=== PATIENT | female | born 1955 | race Caucasian/White ===

== ENCOUNTER → 2019-03-28 | Outpatient (CLI) | payer BC ==
--- NOTE | 2019-03-28 16:25 | Diagnostic Imaging Report ---
INDICATION: Right-sided shoulder pain TECHNIQUE: Three views of the right shoulder CORRELATION STUDY: None FINDINGS: The glenohumeral and acromioclavicular alignment are maintained and unremarkable. There is no evidence for acute fracture or dislocation. Mild hypertrophic spurring about the acromioclavicular joint. The visualized soft tissues are unremarkable. IMPRESSION: 1. Negative for acute bony abnormality about the shoulder. Dictated by: Dictated on workstation # [id number]
== END ==
LOC: RAD FS 15:46
PROVIDERS: ATTEND Nurse Practitioner
DX: M25.511 Pain in right shoulder (principal)
CPT/HCPCS: 73030

== ENCOUNTER → 2019-04-11 | Outpatient (CLI) | payer BC ==
--- NOTE | 2019-04-11 13:40 | Diagnostic Imaging Report ---
INDICATION: One month history of bronchitis, weakness.. TECHNIQUE: Two view chest 12:53 PM CORRELATION STUDY: None FINDINGS: Mild rightward curvature thoracic spine. Heart size, mediastinum and vasculature are within normal limits. The lungs are clear with no consolidating infiltrate. There is no significant pleural effusion or pneumothorax. Calcified granuloma left lower lobe just above the diaphragm. IMPRESSION: 1. No radiographic evidence for acute abnormality of the chest. Dictated by: Dictated on workstation # [id number]
== END ==
LOC: RAD FS 12:39
PROVIDERS: ATTEND Nurse Practitioner Family
DX: R53.1 Weakness (principal); Z87.09 Personal history of other diseases of the respiratory system
CPT/HCPCS: 71046

== ENCOUNTER 2021-02-02 15:18 | Emergency (ER) | payer BC ==
[2021-02-02] MEDS ORDERED: hydrALAZINE (APESOLINE) 20 MG/ML VIAL IV STA (15:33)
[2021-02-02] MEDS ORDERED: ASPIRIN 81 MG CHEW (CHILDREN'S ASA) PO STA (15:33)
[2021-02-02 15:35] LABS: BASOPHILS # (AUTO) 0.1 10^3/uL (0.0-0.1); BASOPHILS % (AUTO) 1 % (0-10); EOSINOPHILS # (AUTO) 0.2 10^3/uL (0.0-0.3); EOSINOPHILS % (AUTO) 3 % (0-10); HEMATOCRIT 39 % (35-52); HEMOGLOBIN 13.6 G/DL (11.5-16.0); LYMPHOCYTES # (AUTO) 1.4 X 10^3 (1.0-4.0); LYMPHOCYTES % (AUTO) 20 % (12-44); MEAN CORPUSCULAR HEMOGLOBIN 32 PG (25-34); MEAN CORPUSCULAR HGB CONC 35 G/DL (32-36); MEAN CORPUSCULAR VOLUME 92 FL (80-99); MEAN PLATELET VOLUME 9.3 FL (7.4-10.4); MONOCYTES % (AUTO) 13 % (0-12); NEUTROPHILS # (AUTO) 4.5 X 10^3 (1.8-7.8); NEUTROPHILS % (AUTO) 63 % (42-75); PLATELET COUNT 319 10^3/uL (130-400); WHITE BLOOD COUNT 7.3 10^3/uL (4.3-11.0)
--- NOTE | 2021-02-02 15:38 | ED Chest Pain ---
General Chief Complaint: Chest Pain Stated Complaint: HIGH BLOOD PRESSURE | CHEST PAINS Nursing Triage Note: Started having chest pain 2 hours ago. Is currently pain free. Pain was in central chest and occured while at rest. Took BP at home and was elevated at 190's systolic. 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 She took her blood pressure and it was 190-200 systolic over 110s. She took a dose of her blood pressure medicine at home about 45 minutes prior to arriving in the ED. she was not actively doing anything specifically when the symptoms started. She states that she was just looking to have a puppy. She was feeling some dizziness along with the chest pressure, nausea, heartburn symptoms. On arrival to the ED she is feeling better but symptoms are not completely resolved just yet. She denies having problems like this in the past. She does have chronic high blood pressure and takes medication for it. She has history of GERD as well but again has not had symptoms just like this. She does have a family history of high blood pressure and cardiac disease. Timing/Duration: 1-3 hours, changing over time (Improving and almost gone on arrival to the ED) Severity/Quality: severe (Initially severe 7-8 out of 10 but almost resolved on arrival to ED), ingestion, pressure Location: substernal, central Radiation: no radiation Activities at Onset: none Prior CP/Workup: no prior cardiac workup Modifying Factors: improves with rest, improves with other (Taking her blood pressure medication) ASA po MANAGER COMMUNITY OUTREACH: No NTG SL MANAGER COMMUNITY OUTREACH: No Associated Symptoms: No abdominal pain, No back pain, No diaphoresis; dizziness; No edema, No fatigue, No fever/chills, No headache; heartburn, nausea/vomiting; No rash, No shortness of breath, No swelling/lump in chest, No syncope, No weakness Allergies and Home Medications Allergies Coded Allergies: No Known Drug Allergies (Unverified , 02/02/21) Patient Home Medication List Home Medication List Reviewed: Yes Review of Systems Review of Systems Constitutional: see HPI; No chills, No diaphoresis; dizziness; No fever EENTM: No Symptoms Reported Respiratory: No Symptoms Reported Cardiovascular: See HPI Gastrointestinal: See HPI Genitourinary: No Symptoms Reported Musculoskeletal: no symptoms reported Skin: No rash Psychiatric/Neurological: Denies Headache, Denies Numbness, Denies Paresthesia Endocrine: No Symptoms Reported Hematologic/Lymphatic: No Symptoms Reported Past Vnlrkbo-Xrhegk-Hythof Hx Past Med/Social Hx: Reviewed Nursing Past Med/Soc Hx Patient Social History Alcohol Use: Occasionally Uses Alcohol Beverage of Choice: Beer Smoking Status: Never a Smoker 2nd Hand Smoke Exposure: No Recent Infectious Disease Expo: No Recent Hopitalizations: No Seasonal Allergies Seasonal Allergies: No Past Medical History Respiratory: No Cardiac: Yes Hypertension Neurological: No Genitourinary: No Gastrointestinal: Yes Gastroesophageal Reflux Musculoskeletal: No Endocrine: No HEENT: No Cancer: No Psychosocial: No Integumentary: No Blood Disorders: No Adverse Reaction/Blood Tranf: No Physical Exam Vital Signs Vital Signs - First Documented 02/02/21 15:26 Temp 36.6 Pulse 72 Resp 18 B/P (MAP) 188/86 (120) Pulse Ox 97 Capillary Refill : Less Than 3 Seconds Height, Weight, BMI Height: '" Weight: lbs. oz. kg; BMI Method: General Appearance: Anxious, Mild Distress HEENT: PERRL/EOMI, Pharynx Normal Neck: Full Range of Motion, Normal Inspection, Non Tender, Supple; No Carotid Bruit Respiratory: Chest Non Tender, Lungs Clear, Normal Breath Sounds, No Accessory Muscle Use, No Respiratory Distress Cardiovascular: Regular Rate, Rhythm, Normal Peripheral Pulses Gastrointestinal: Normal Bowel Sounds, No Pulsatile Mass, Non Tender, Soft Extremity: Normal Capillary Refill, No Pedal Edema Neurologic/Psychiatric: Alert, Oriented x3, family law attorney II-XII Norm as Tested Skin: Normal Color, Warm/Dry Progress/Results/Core Measures Results/Orders Lab Results Laboratory Tests Test 02/02/21 15:29 02/02/21 17:30 Range/Units White Blood Count 7.3 4.3-11.0 10^3/uL Red Blood Count 4.20 L 4.35-5.85 10^6/uL Hemoglobin 13.6 11.5-16.0 G/DL Hematocrit 39 35-52 % Mean Corpuscular Volume 92 80-99 FL Mean Corpuscular Hemoglobin 32 25-34 PG Mean Corpuscular Hemoglobin Concent 35 32-36 G/DL Red Cell Distribution Width 11.6 10.0-14.5 % Platelet Count 319 130-400 10^3/uL Mean Platelet Volume 9.3 7.4-10.4 FL Immature Granulocyte % (Auto) 0 % Neutrophils (%) (Auto) 63 42-75 % Lymphocytes (%) (Auto) 20 12-44 % Monocytes (%) (Auto) 13 H 0-12 % Eosinophils (%) (Auto) 3 0-10 % Basophils (%) (Auto) 1 0-10 % Neutrophils # (Auto) 4.5 1.8-7.8 X 10^3 Lymphocytes # (Auto) 1.4 1.0-4.0 X 10^3 Monocytes # (Auto) 1.0 0.0-1.0 X 10^3 Eosinophils # (Auto) 0.2 0.0-0.3 10^3/uL Basophils # (Auto) 0.1 0.0-0.1 10^3/uL Immature Granulocyte # (Auto) 0.0 0.0-0.1 10^3/uL Prothrombin Time 12.2 12.2-14.7 SEC INR Comment 0.9 0.8-1.4 Activated Partial Thromboplast Time 32 24-35 SEC Sodium Level 134 L 135-145 MMOL/L Potassium Level 4.2 3.6-5.0 MMOL/L Chloride Level 97 L 98-107 MMOL/L Carbon Dioxide Level 28 21-32 MMOL/L Anion Gap 9 5-14 MMOL/L Blood Urea Nitrogen 15 7-18 MG/DL Creatinine 0.77 0.60-1.30 MG/DL Estimat Glomerular Filtration Rate > 60 BUN/Creatinine Ratio 19 Glucose Level 99 70-105 MG/DL Calcium Level 10.3 H 8.5-10.1 MG/DL Corrected Calcium 8.5-10.1 MG/DL Magnesium Level 2.0 1.6-2.4 MG/DL Total Bilirubin 0.3 0.1-1.0 MG/DL Aspartate Amino Transf (AST/SGOT) 18 5-34 U/L Alanine Aminotransferase (ALT/SGPT) 14 0-55 U/L Alkaline Phosphatase 93 40-136 U/L Troponin I < 0.30 < 0.30 <0.30 NG/ML Pro-B-Type Natriuretic Peptide 199.5 H <75.0 PG/ML Total Protein 7.1 6.4-8.2 GM/DL Albumin 4.6 H 3.2-4.5 GM/DL Lipase 23 8-78 U/L My Orders Orders - YASEMIN BILLINGS MD Cbc With Automated Diff (02/02/21 15:21) Magnesium (02/02/21 15:21) Chest 1 View Ap/Pa Only (02/02/21 15:21) Ekg Tracing (02/02/21 15:) Comprehensive Metabolic Panel (02/02/21 15:21) Protime With Inr (02/02/21 15:21) Partial Thromboplastin Time (02/02/21 15:21) O2 (02/02/21 15:21) Monitor-Rhythm Ecg Trace Only (02/02/21 15:21) Ed Iv/Invasive Line Start (02/02/21 15:21) Lipase (02/02/21 15:21) Troponin I Fs (02/02/21 15:21) Probnp Fs (02/02/21 15:21) Aspirin Chewable Tablet (Baby Aspirin Ch (02/02/21 15:33) Hydralazine Injection (Apresoline Inject (02/02/21 15:33) Pantoprazole Injection (Protonix Injecti (02/02/21 16:38) Troponin I Fs (02/02/21 17:25) Vital Signs/I&O 02/02/21 02/02/21 15:26 17:59 Temp 36.6 Pulse 72 84 Resp 18 24 B/P (MAP) 188/86 (120) 130/69 Pulse Ox 97 97 Blood Pressure Mean: 120 Progress Progress Note #1: Progress Note Placed on cardiac monitoring tech as patient was complaining of chest pain. This showed sinus rhythm with a heart rate of 65 with no ectopy. Obtain basic labs including cardiac enzymes and chest x-ray with e lectrocardiogram. Give aspirin as well as a dose of hydralazine for her blood pressure. Since her heart rates are in the around 60 will defer on a beta- juan so as to not cause patient to be too bradycardic. Differential diagnosis includes hypertensive emergency, pneumonia, pleurisy, GERD with esophageal spasms, acute coronary syndrome, myocardial infarction Progress Note #2: Time: 16:19 Progress Note Labs demonstrate no acute significant abnormality. Her CBC and chemistry are normal without acute elevation of her troponin. She has no acute abnormality on her chest x-ray. Her electrocardiogram shows a sinus rhythm and she does have Q waves in leads V1 and V2 but there is no prior tracing available for comparison. There is no acute ST elevation. With hydralazine her blood pressure, which was already improving on its own, but has continued to improve. Telemetry monitoring continues to show sinus rhythm without ectopy with rate in the 70s. Discussed results with the patient and family. Advised that initial electrocardiogram and labs did not demonstrate any evidence of acute myocardial infarction or need to grant to the Basket Braider. Provided a repeat troponin is still 0 and she has no further pains will anticipate discharge to home to have her do further testing as an outpatient. If she has more pain or change in symptoms then she may need additional testing or admission here. She still reports some indigestion so we will add on a dose of Protonix IV. Progress Note #3: Time: 17:55 Progress Note Repeat Troponin still negative at <0.3. Blood pressure still better controlled than what she reported at home. Telemetry monitoring continued sinus rhythm at 80. Indigestion and heartburn symptoms improved after Protonix. Advised to check her blood pressure intermittently at home and keep a log to follow-up with Dr. Ashley. May need adjustment of her blood pressure medicine or she may need to do a stress test to evaluate for cardiac risk factors. If she has worsening symptoms more pain or more problems advised to return or seek medical care for further evaluation. Will d/c to home and have her check back with clinic about pressures as discussed previously. Initial ECG Impression Date: Feb 02, 2021 Initial ECG Impression Time: 15:23 Initial ECG Rate: 70 Initial ECG Rhythm: Normal Sinus Initial ECG Comparisson: No Previous ECG Available Comment Sinus rhythm with a heart rate of [address] interval 151 ms. Multiple PVCs. No acute ST elevation. QT interval 391 ms with a QTc interval 422 ms. There are Q waves in leads V1 and V2. There is no prior tracing available for comparison. Diagnostic Imaging Diagonstic Imaging: Xray Plain Films/CT/US/NM/MRI: chest Comments [facility] [place], [place] NAME: ANANDA BEJARANO [facility] REC#: [id number] PT STATUS: REG ER : 1955 PHYSICIAN: YASEMIN BILLINGS MD ADMIT DATE: 02/02/21/ER FS Draft Date of Exam:02/02/21 CHEST 1 VIEW AP/PA ONLY INDICATION: Hypertension, chest pain. COMPARISON: Exam compared to 04/03/2019. FINDINGS: The lungs are clear. There is no failure, effusion, or pneumothorax. IMPRESSION: No acute-appearing abnormality. Dictated on workstation # [id number] Dict: 02/02/21 1537 Trans: 02/02/21 1542 [id number] Interpreted by: ROSSY MILLER Electronically signed by: Departure Impression Primary Impression: GERD with esophagitis Qualified Codes: K21.00 - Gastro-esophageal reflux disease with esophagitis, without bleeding Additional Impressions: Hypertensive urgency Chest pain Qualified Codes: R07.9 - Chest pain, unspecified Disposition: 01 HOME, SELF-CARE Condition: Improved Departure-Patient Inst. Decision time for Depature: 17:56 Referrals: RUFINA ASHLEY MD (PCP/Family) Primary Care Physician Patient Instructions: Chest Pain, Adult ED, Acid Reflux, Adult and Adolescent ED, High Blood Pressure (DC), DASH Diet Add. Discharge Instructions: Monitor blood pressure at different times during the day over next few days. Check with clinic about your blood pressure and symptoms in the next week If you have worsening problems or more concerns seek medical care or be seen sooner All discharge instructions reviewed with patient and/or family. Voiced understanding. YASEMIN BILLINGS MD Feb 02, 2021 15:38
--- NOTE | 2021-02-02 15:42 | Diagnostic Imaging Report ---
INDICATION: Hypertension, chest pain. COMPARISON: Exam compared to 04/03/2019. FINDINGS: The lungs are clear. There is no failure, effusion, or pneumothorax. IMPRESSION: No acute-appearing abnormality. Dictated by: Dictated on workstation # [id number]
[2021-02-02 15:53] LABS: PROTHROMBIN TIME PATIENT 12.2 SEC (12.2-14.7)
[2021-02-02 15:54] LABS: ALKALINE PHOSPHATASE 93 U/L (40-136); BILIRUBIN,TOTAL 0.3 MG/DL (0.1-1.0); BUN/CREATININE RATIO 19; CALCIUM 10.3 MG/DL (8.5-10.1); CARBON DIOXIDE 28 MMOL/L (21-32); CHLORIDE 97 MMOL/L (98-107); CREATININE SERUM 0.77 MG/DL (0.60-1.30); GFR ESTIMATED > 60; GLUCOSE 99 MG/DL (70-105); INR 0.9 (0.8-1.4); POTASSIUM 4.2 MMOL/L (3.6-5.0); SODIUM 134 MMOL/L (135-145)
[2021-02-02 15:55] LABS: ALANINE AMINOTRANSFERASE 14 U/L (0-55); ALBUMIN 4.6 GM/DL (3.2-4.5); LIPASE 23 U/L (8-78); TOTAL PROTEIN 7.1 GM/DL (6.4-8.2)
[2021-02-02] MEDS ORDERED: PANTOPRAZOLE 40 MG (PROTONIX) VIAL IV STA (16:38)
[2021-02-02 17:59] VITALS: BP 130/69
== END 2021-02-02 18:01 | disposition home or self-care (01) ==
LOC: EDUNIT# 15:18 → ER FS 15:20
DX: I16.0 Hypertensive urgency (principal); K21.00 Gastro-esophageal reflux disease with esophagitis, without bleeding; I10 Essential (primary) hypertension; Z79.899 Other long term (current) drug therapy
CPT/HCPCS: 36415; 71045; 80053; 83690; 83735; 83880; 84484; 85025; 85610; 85730; 93041

== ENCOUNTER 2022-10-15 09:14 | Emergency (ER) | payer MEDICARE, BC ==
[~2022-10-15] VITALS: Ht 160 cm; Wt 63.5 kg
--- NOTE | 2022-10-15 09:20 | ED Cough/URI ---
General Chief Complaint: Cough/Cold/Flu Symptoms Stated Complaint: COUGH; SOB History of Present Illness Date Seen by Provider: Oct 15, 2022 Time Seen by Provider: 09:20 Initial Comments 67-year-old female presents with just cough, generalized malaise and feeling of shortness of breath. Patient reports that 3 weeks ago she was diagnosed with COVID. That week ago she was seen at her primary care provider office and had x-ray that showed something in the "left lower lobe" was started on azithromycin. She is finished azithromycin. Patient states she is still having symptoms of cough, occasional shortness of breath and just generalized malaise. Patient reports that she has pain with deep breath along with some pain in her left lower back with deep breath. Patient denies any fever, nausea vomiting or diarrhea. Allergies and Home Medications Allergies Coded Allergies: No Known Drug Allergies (Unverified , 02/02/21) Patient Home Medication List Home Medication List Reviewed: Yes Review of Systems Review of Systems Constitutional: No fever; malaise EENTM: No ear pain, No throat pain Respiratory: cough, short of breath; No wheezing Cardiovascular: chest pain (with deep breath ) Gastrointestinal: No abdominal pain, No nausea, No vomiting Musculoskeletal: see HPI, back pain Skin: no symptoms reported Psychiatric/Neurological: No Symptoms Reported Hematologic/Lymphatic: No Symptoms Reported Past Jarnhdt-Jbhzxk-Akvvbc Hx Seasonal Allergies Seasonal Allergies: No Past Medical History Respiratory: No Cardiac: Yes Hypertension Neurological: No Genitourinary: No Gastrointestinal: Yes Gastroesophageal Reflux Musculoskeletal: No Endocrine: No HEENT: No Cancer: No Psychosocial: No Integumentary: No Blood Disorders: No Adverse Reaction/Blood Tranf: No Physical Exam Vital Signs - First Documented Capillary Refill : Height: '" Weight: lbs. oz. kg; BMI Method: General Appearance: WD/WN, no apparent distress Eyes: Bilateral Eye Normal Inspection HEENT: PERRL/EOMI, pharynx normal Neck: full range of motion, supple, normal inspection Respiratory: lungs clear, normal breath sounds, no respiratory distress, no accessory muscle use Cardiovascular: normal peripheral pulses, regular rate, rhythm Gastrointestinal: non tender, soft Neurologic/Psychiatric: alert, normal mood/affect, oriented x 3 Skin: normal color, warm/dry Progress/Results/Core Measures Suspected Sepsis SIRS Temperature: Pulse: Respiratory Rate: Laboratory Tests 10/15/22 09:34: White Blood Count 10.5 Blood Pressure / Mean: Laboratory Tests 10/15/22 09:34: Creatinine 0.79, Platelet Count 99L, Total Bilirubin 0.5 Results/Orders Lab Results Laboratory Tests Test 10/15/22 09:34 Range/Units White Blood Count 10.5 4.3-11.0 10^3/uL Red Blood Count 4.33 3.80-5.11 10^6/uL Hemoglobin 13.6 11.5-16.0 g/dL Hematocrit 39 35-52 % Mean Corpuscular Volume 89 80-99 fL Mean Corpuscular Hemoglobin 31 25-34 pg Mean Corpuscular Hemoglobin Concent 35 32-36 g/dL Red Cell Distribution Width 12.1 10.0-14.5 % Platelet Count 99 L 130-400 10^3/uL Mean Platelet Volume 10.9 9.0-12.2 fL Immature Granulocyte % (Auto) 1 % Neutrophils (%) (Auto) 77 H 42-75 % Lymphocytes (%) (Auto) 10 L 12-44 % Monocytes (%) (Auto) 11 0-12 % Eosinophils (%) (Auto) 1 0-10 % Basophils (%) (Auto) 0 0-10 % Neutrophils # (Auto) 8.1 H 1.8-7.8 10^3/uL Lymphocytes # (Auto) 1.0 1.0-4.0 10^3/uL Monocytes # (Auto) 1.2 H 0.0-1.0 10^3/uL Eosinophils # (Auto) 0.1 0.0-0.3 10^3/uL Basophils # (Auto) 0.0 0.0-0.1 10^3/uL Immature Granulocyte # (Auto) 0.1 0.0-0.1 10^3/uL D-Dimer 0.25 0.00-0.49 UG/ML Sodium Level 137 135-145 MMOL/L Potassium Level 3.8 3.6-5.0 MMOL/L Chloride Level 94 L 98-107 MMOL/L Carbon Dioxide Level 25 21-32 MMOL/L Anion Gap 18 H 5-14 MMOL/L Blood Urea Nitrogen 13 7-18 MG/DL Creatinine 0.79 0.60-1.30 MG/DL Estimat Glomerular Filtration Rate 82 BUN/Creatinine Ratio 16 Glucose Level 118 H 70-105 MG/DL Calcium Level 9.7 8.5-10.1 MG/DL Corrected Calcium 9.6 8.5-10.1 MG/DL Total Bilirubin 0.5 0.1-1.0 MG/DL Aspartate Amino Transf (AST/SGOT) 16 5-34 U/L Alanine Aminotransferase (ALT/SGPT) 25 0-55 U/L Alkaline Phosphatase 93 40-136 U/L C-Reactive Protein 4.50 H <0.50 MG/DL Total Protein 6.9 6.4-8.2 GM/DL Albumin 4.1 3.2-4.5 GM/DL My Orders Orders - OSCAR,FALLON L DO Cbc With Automated Diff (10/15/22 09:24) Comprehensive Metabolic Panel (10/15/22 09:24) Fibrin Degradation Products (10/15/22 09:24) Procalcitonin (Pct) (10/15/22 09:24) Crp Fs (10/15/22 09:24) Chest Pa/Lat (2 View) (10/15/22 09:24) Vital Signs/I&O 10/15/22 10/15/22 09:18 09:18 Temp 36.5 Pulse 107 Resp 16 B/P (MAP) 134/77 (96) O2 Delivery Room Air Room Air Capillary Refill : Progress Note : Progress Note Patient's x-ray shows no acute findings. Her labs show a slight elevation in CRP. She does report that she has been around her grandkids who are positive for RSV. Discussed with her that along with COVID RSV and influenza are very prevalent in the community right now and there is a good chance that she has an additional viral infection. Discussed with her chgk-leo-zixrjli supportive care. Recommend if she continues over the 10 to 14 days and not better she follow-up with her primary care provider for possible pulmonary function test. Patient with a negative D-dimer so at this time do not feel CT angio is indicated. She is stable and discharged Diagnostic Imaging Diagonstic Imaging: Xray Plain Films/CT/US/NM/MRI: chest Comments Date of Exam:10/15/22 CHEST PA/LAT (2 VIEW) INDICATION: Cough and shortness of breath. PA and lateral chest. FINDINGS: There is some discoid atelectasis at the right lung base. There is calcified granuloma at left lung base. There are no infiltrates, effusions or pneumothoraces. IMPRESSION: No acute abnormalities in the chest. Departure Impression Primary Impression: Acute viral bronchiolitis Disposition: 01 HOME, SELF-CARE Condition: Stable Departure-Patient Inst. Referrals: SELFRUFINA MD (PCP) Primary Care Physician Patient Instructions: Viral Upper Respiratory Infection, Adult (DC) Add. Discharge Instructions: Honey as needed for cough, you may try elderberry to help with your symptoms. Follow-up with your primary care provider if symptoms have not seemingly improved over the next 10 days for further evaluation and possible pulmonary function test if they feel that is indicated All discharge instructions reviewed with patient and/or family. Voiced understanding. FALLON OSCAR DO Oct 15, 2022 09:20
[2022-10-15 09:38] LABS: BASOPHILS % (AUTO) 0 % (0-10); EOSINOPHILS # (AUTO) 0.1 10^3/uL (0.0-0.3); EOSINOPHILS % (AUTO) 1 % (0-10); HEMATOCRIT 39 % (35-52); HEMOGLOBIN 13.6 g/dL (11.5-16.0); LYMPHOCYTES % (AUTO) 10 % (12-44); MEAN CORPUSCULAR HEMOGLOBIN 31 pg (25-34); MEAN CORPUSCULAR HGB CONC 35 g/dL (32-36); MEAN CORPUSCULAR VOLUME 89 fL (80-99); MEAN PLATELET VOLUME 10.9 fL (9.0-12.2); MONOCYTES # (AUTO) 1.2 10^3/uL (0.0-1.0); MONOCYTES % (AUTO) 11 % (0-12); NEUTROPHILS # (AUTO) 8.1 10^3/uL (1.8-7.8); NEUTROPHILS % (AUTO) 77 % (42-75); PLATELET COUNT 99 10^3/uL (130-400); WHITE BLOOD COUNT 10.5 10^3/uL (4.3-11.0)
--- NOTE | 2022-10-15 09:49 | Diagnostic Imaging Report ---
INDICATION: Cough and shortness of breath. PA and lateral chest. FINDINGS: There is some discoid atelectasis at the right lung base. There is calcified granuloma at left lung base. There are no infiltrates, effusions or pneumothoraces. IMPRESSION: No acute abnormalities in the chest. Dictated by: Dictated on workstation # [id number]
[2022-10-15 10:00] LABS: POTASSIUM 3.8 MMOL/L (3.6-5.0)
[2022-10-15 10:01] LABS: ALBUMIN 4.1 GM/DL (3.2-4.5); BILIRUBIN,TOTAL 0.5 MG/DL (0.1-1.0); CALCIUM 9.7 MG/DL (8.5-10.1); CREATININE SERUM 0.79 MG/DL (0.60-1.30); TOTAL PROTEIN 6.9 GM/DL (6.4-8.2)
[2022-10-15 10:37] VITALS: BP 133/84
== END 2022-10-15 10:37 | disposition home or self-care (01) ==
LOC: EDUNIT# 09:14 → ER FS 09:16
DX: J21.9 Acute bronchiolitis, unspecified (principal); B34.9 Viral infection, unspecified; Z86.16 Personal history of COVID-19
CPT/HCPCS: 36415; 71046; 80053; 84145; 85025; 85379; 86141